=== PATIENT | male | born 1995 | race Caucasian/White ===

== ENCOUNTER 2017-04-16 09:40 | Emergency (ER) | payer MEDICAID, OTHER ==
[~2017-04-16] VITALS: Ht 170.2 cm; Wt 63.5 kg
[2017-04-16 09:42] VITALS: BP 133/76
== END 2017-04-16 11:44 | disposition home or self-care (01) ==
LOC: EMS 09:43
DX: M25.512 Pain in left shoulder (principal); F12.90 Cannabis use, unspecified, uncomplicated; F17.210 Nicotine dependence, cigarettes, uncomplicated
CPT/HCPCS: 99281

== ENCOUNTER 2017-10-24 11:14 | Emergency (ER) | payer OTHER ==
[~2017-10-24] VITALS: Ht 172.7 cm; Wt 63.6 kg
[2017-10-24 13:35] VITALS: BP 115/75
== END 2017-10-24 14:32 | disposition home or self-care (01) ==
LOC: EMS 11:17
DX: M25.512 Pain in left shoulder (principal); F12.10 Cannabis abuse, uncomplicated; F17.210 Nicotine dependence, cigarettes, uncomplicated
CPT/HCPCS: 99284